=== PATIENT | male | born 1985 | race Caucasian/White ===

== ENCOUNTER 2024-10-20 20:14 | Emergency (ER) | payer SELFPAY ==
[~2024-10-20] VITALS: Ht 177.8 cm; Wt 81.8 kg
[2024-10-20 20:23] VITALS: BP 152/102; PULSE 114; TEMP 98.1; O2SAT 97
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
[2024-10-20 20:35] VITALS: RESP 18
== END 2024-10-20 20:37 ==
LOC: ER 20:15
DX: M54.2 Cervicalgia (principal); F10.129 Alcohol abuse with intoxication, unspecified; V89.2XXA Person injured in unspecified motor-vehicle accident, traffic, initial encounter; Y93.89 Activity, other specified; Y92.89 Other specified places as the place of occurrence of the external cause; Y99.8 Other external cause status; Y90.9 Presence of alcohol in blood, level not specified
CPT/HCPCS: 99283